=== PATIENT | male | born 1930 | race African-American/Black ===

== ENCOUNTER 2016-11-11 20:45 | Emergency (ER) | payer MEDICARE ==
[~2016-11-11 20:45] MED LIST: AMITIZA24 PO; AMITIZA8 MCG PO; AMRIX30 MG PO; ASAB PO; BENTYL10 PO; BROVANA15 MCG INH; CLARIT10 PO; DUONEB INH; ENDOCET1 TA1 PO; EYE OPH; FLEX PO; FLEXERIL5 MG PO; FLONASE NAS; GAVISCON6 PO; HALF81 PO; IRON OTC PO; IRON PO; KDUR10 PO; KLONO1 PO; KLONO2 PO; KLOR-CON 1010 MEQ PO; KLOR-CON20 MEQ PO; L20 PO; L40 PO; MOMUD PO; MSIMMR15 PO; PAXIL40 MG PO; PERCOCET1 TA4 PO; PRILOSEC40 MG PO; PROAIR HFA INH; PULRESP.5 INH; SINGULAIR1 PO; STERAPRED DS10 MG PO; SYMBICORT 160/41 INH INH; SYSTANE OPH; T300 PO; ZBETA10 PO; ZIAC2 PO
== END 2016-11-11 21:33 | disposition home or self-care (01) ==
LOC: ER 20:45
DX: S16.1XXA Strain of muscle, fascia and tendon at neck level, initial encounter (principal); R51 Headache; J44.9 Chronic obstructive pulmonary disease, unspecified; J45.909 Unspecified asthma, uncomplicated; I10 Essential (primary) hypertension; Z87.891 Personal history of nicotine dependence; Z79.82 Long term (current) use of aspirin; Z79.899 Other long term (current) drug therapy; V29.40XA Motorcycle driver injured in collision with unspecified motor vehicles in traffic accident, initial encounter
CPT/HCPCS: 70450; 72125; 93005; 99284; A9270-GY